=== PATIENT | male | born 1965 | race African-American/Black ===

== ENCOUNTER 2019-06-18 18:02 | Emergency (ER) | payer MEDICAID ==
[~2019-06-18] VITALS: Ht 172.7 cm; Wt 84.0 kg
[2019-06-18] MEDS ORDERED: SODIUM CHLORIDE 0.9% 1,000 ML IV ONE (19:33)
[2019-06-18] MEDS ORDERED: MORPHINE SULFATE 4 MG/ML CPJ (NOT FOR IM USE) IV STA ×2 (19:33→23:54)
[2019-06-18] MEDS ORDERED: ONDANSETRON HCL 4MG/2ML INJ IV STA ×2 (19:33→23:54)
[2019-06-18] MEDS ORDERED: LIDOCAINE HCL/PF 1% 10 MG/ML 5ML VIAL IJ ONE (19:45)
[2019-06-18] MEDS ORDERED: LIDOCAINE 1%/EPI 1:100,000 10 ML VIAL IJ ONE (19:45)
[2019-06-18] MEDS ORDERED: TETRACAINE 0.5% OPHTH DROPS 4ML LEFTEYE ONE (19:45)
[2019-06-18] MEDS ORDERED: FLUORESCEIN SODIUM 1MG/STRIP LEFTEYE ONE (19:45)
[2019-06-18] MEDS ORDERED: TETANUS, DIPHTHERIA, PERTUSSIS VAC/PF 0.5ML (>7YR OLD) IM ONE (19:45)
[2019-06-18 21:46] LABS: BASOPHILS % 0.2 % (0.0-2.0); EOSINOPHILS % 0.3 % (0.0-5.0); HEMATOCRIT. 48.3 % (42.0-52.0); HEMOGLOBIN. 16.1 g/dL (14.0-18.0); LYMPHOCYTES % 11.9 % (20.0-50.0); MEAN CORPUSCULAR HEMOGLOBIN 29.5 pg (28.0-32.0); MEAN CORPUSCULAR VOLUME 88.2 fL (80.0-94.0); MONOCYTES % 7.6 % (2.0-8.0); RED BLOOD CELL COUNT 5.48 mill/uL (4.7-6.1); RED CELL DISTRIBUTION WIDTH 14.2 % (11.6-14.6)
[2019-06-18 21:51] LABS: CHLORIDE 108 mEq/L (98-107)
[2019-06-18 21:53] LABS: PROTHROMBIN TIME 10.7 sec (9.6-11.0)
[2019-06-18 22:02] LABS: PLATELET 179 x1000/uL (130-400)
[2019-06-18 22:03] LABS: MEAN PLATELET VOLUME 8.4 fl (7.4-10.4)
[2019-06-18] MEDS ORDERED: HYDRALAZINE 20MG/ML VIAL IV ONE (22:30)
[2019-06-18] MEDS ORDERED: AMPICILLIN SOD/SULBACTAM NA 3 G in SODIUM CHLORIDE 0.9% 100 ML IV SCH (23:15)
[2019-06-19] MEDS ORDERED: IBUPROFEN 600MG TABLET PO ONE (06:45)
[2019-06-19 07:15] VITALS: BP 139/89
== END 2019-06-19 07:33 | disposition short-term general hospital (02) ==
LOC: ER 18:02
DX: S02.32XA Fracture of orbital floor, left side, initial encounter for closed fracture (principal); S02.832A Fracture of medial orbital wall, left side, initial encounter for closed fracture; S02.40DA Maxillary fracture, left side, initial encounter for closed fracture; S01.112A Laceration without foreign body of left eyelid and periocular area, initial encounter; S50.01XA Contusion of right elbow, initial encounter; H50.69 Other mechanical strabismus; R07.81 Pleurodynia; I10 Essential (primary) hypertension; E87.6 Hypokalemia; I45.10 Unspecified right bundle-branch block; D72.829 Elevated white blood cell count, unspecified; R79.89 Other specified abnormal findings of blood chemistry; Y04.2XXA Assault by strike against or bumped into by another person, initial encounter; Y93.89 Activity, other specified; Y92.89 Other specified places as the place of occurrence of the external cause; Y99.8 Other external cause status
CPT/HCPCS: 12011; 36415; 70450; 70480; 71101; 73080; 80053; 85025; 85610; 85730; 86850; 86900; 86901; 90715; 93005; 96365; 96375; 96376; 99285; J0295; J0360; J2270; J2405; J3490; J7030; J7050; Z7610